=== PATIENT | female | born 1965 | race Caucasian/White ===

== ENCOUNTER 2022-01-02 08:50 | Emergency (ER) | payer OTHER, SELFPAY ==
[~2022-01-02] VITALS: Ht 162.6 cm; Wt 67.8 kg
[2022-01-02] MEDS ORDERED: PROPARACAINE 0.5% OPHTH SOL 15ML XX ONE (09:30)
[2022-01-02] MEDS ORDERED: FLUORESCEIN OPHTH 1 MG STRIP XX ONE (09:30)
[2022-01-02 10:48] VITALS: BP 132/74
== END 2022-01-02 10:50 | disposition home or self-care (01) ==
LOC: M ED 08:50
DX: H00.012 Hordeolum externum right lower eyelid (principal); I10 Essential (primary) hypertension; E11.9 Type 2 diabetes mellitus without complications; Z86.79 Personal history of other diseases of the circulatory system

== ENCOUNTER 2022-09-22 12:35 | Emergency (ER) | payer SELFPAY ==
[~2022-09-22] VITALS: Ht 162.6 cm; Wt 67.4 kg
[2022-09-22] MEDS ORDERED: IBUP200C29 PO (12:48)
[2022-09-22] MEDS ORDERED: TETRACAINE 0.5% OPHTH SOLN 4ML OU ONE (14:15)
[2022-09-22 16:18] LABS: BASO # 0.1 10^3/uL (0.0-0.2); BASO % 0.9 % (0.0-1.0); EOS # 0.1 10^3/uL (0.0-0.5); EOS % 1.3 % (0.0-3.0); HEMOGLOBIN 16.1 g/dl (12.0-15.5); LYMPH # 1.4 10^3/uL (1.5-5.0); LYMPH % 17.9 % (24.0-44.0); MEAN CORPUSCULAR HEMOGLOBIN 31.6 pg (27.0-33.0); MEAN CORPUSCULAR HGB CONC 32.9 g/dl (32.0-36.5); MEAN CORPUSCULAR VOLUME 96.3 fl (80.0-96.0); MONO # 0.5 10^3/uL (0.0-0.8); MONO % 6.8 % (2.0-8.0); NEUTROPHILS # 5.7 10^3/uL (1.5-8.5); NEUTROPHILS % 72.8 % (36.0-66.0); PLATELET COUNT, AUTOMATED 309 10^3/uL (150-450); RED BLOOD COUNT 5.09 10^6/uL (4.00-5.40); WHITE BLOOD COUNT 7.8 10^3/uL (4.0-10.0)
[2022-09-22 16:52] VITALS: BP 198/96
[2022-09-22] MEDS ORDERED: LISI10TA24 PO (17:30)
== END 2022-09-22 18:01 | disposition left against medical advice (07) ==
LOC: M ED 12:35
DX: H54.52A1 Low vision left eye category 1, normal vision right eye (principal); I10 Essential (primary) hypertension; F17.200 Nicotine dependence, unspecified, uncomplicated; Z79.1 Long term (current) use of non-steroidal anti-inflammatories (NSAID); Z79.811 Long term (current) use of aromatase inhibitors; Z53.9 Procedure and treatment not carried out, unspecified reason